=== PATIENT | male | born 1935 | race Caucasian/White ===

== ENCOUNTER 2022-05-18 10:27 | Inpatient (IN) ==
--- NOTE | 2022-05-18 10:57 | Emergency Department Note ---
Impression & Plan SOB (shortness of breath), CHF (congestive heart failure), Elevated troponin, Pedal edema ED Provider Note NAME: AUTUMN CHAUHAN AGE: 86 SEX: M : 1935 ARRIVES VIA: Walk-In INFORMANT: [Patient][family] ED PROVIDER(S): [Paco Gomez MD] CHIEF COMPLAINT: Short of breath HISTORY OF PRESENT ILLNESS: The patient is an 86-year-old male with a history of previous PE, he is on anticoagulation therapy. Lately, especially in the last 2 days, the patient has been complaining of some increasing shortness of breath. He complained of this with walking and then also with the stairs. He has not had any increased cough or congestion. No real chest pain. No fever. No urinary complaints. The patient does have some edema of his lower extremities which family believes may be above his baseline. PMHx/PSHx: See Below SOCIAL HISTORY: See Below. PHYSICAL EXAM: GENERAL: Patient is in no acute distress. HEENT: No acute trauma, normocephalic atraumatic, mucous membranes moist, no nasal congestion. NECK: No stridor, no adenopathy, no meningismus, trachea is midline. LUNGS: No respiratory distress, no wheezing, a few scattered crackles heard at the left lower lung. No cough. HEART: Without murmurs gallops or rubs, regular rate and rhythm. ABDOMEN: Soft, nontender, bowel sounds positive, no peritonitis. EXTREMITIES: No cyanosis. Moderate bilateral pedal edema, no erythema or rash. NEUROLOGIC: Awake and alert, no acute motor or sensory deficits, no focal weakness. SKIN: No rash, no jaundice, no diaphoresis. DIFFERENTIAL DIAGNOSIS: Reactive airway disease, RSV, influenza, COVID-19, pneumonia, pneumothorax, COPD, CHF, pleural effusion, infection, cardiac ischemia, anemia, pulmonary embolism, bronchitis, as well as other pathologies. EMERGENCY DEPARTMENT COURSE/PROCEDURES: Prior/Outside records reviewed: Previous discharge summary reviewed. ECG per my interpretation: Indication was shortness of breath. The ECG shows a sinus rhythm with a first-degree AV block. The rate is 81. There is a right bundle branch block. There is a potential old inferior infarct. No ST elevation, no PVCs. The QTc was 499. Compared to an ECG from 05 Oct 2017, potential old inferior infarct is not noted. Continuous Cardiac Monitoring per my interpretation: An order was placed for continuous cardiac monitoring. The monitor shows a rate of 82 with normal sinus rhythm. MEDICAL DECISION MAKING: There is no leukocytosis or concerning anemia. There is a normal platelet count. No worrisome coagulopathy. No renal failure or significant electrolyte abnormality requiring emergent correction. No concerning liver enzyme elevation. BNP was elevated consistent with fluid overload. Chest x-ray showed a left small left pleural effusion. Some potential mild CHF was seen, no pneumothorax. ECG showed a sinus rhythm with a first-degree AV block and a right bundle branch block. No ST elevation. Cardiac enzyme testing x1 was slightly elevated. This troponin elevation could be secondary to cardiac injury or potentially mismatch. Chest CT did not show PE, CHF was noted. COVID, influenza and RSV test returned negative. Patient presents with exertional dyspnea. He has some crackles on lung exam as well as some pedal edema. The patient was given IV Lasix, 40 mg. He is already diuresing. Given the CHF, given his dyspnea, given the troponin elevation, I do think a hospital stay is warranted. I spoke with the patient and his family, I talked with case management, the on- call hospitalist was consulted. DISPOSITION: Patient's findings warrant a hospital stay. Past Med/Surg History Medical History (HFpEF) heart failure with preserved ejection fraction Edema History of pulmonary embolism HTN (hypertension) Social History Smoking Status: Never smoker Feels Safe at Home: Yes Allergies Allergies Allergy/AdvReac Type Severity Reaction Status Date / Time No Known Allergies Allergy Unverified 10/05/17 12:44 Home Meds Previous Rx's Medication Instructions Recorded APIXABAN (ELIQUIS) 10 mg PO UD 6 days #24 tabs 10/07/17 Aspirin (Aspirin EC Low Dose) 81 mg PO QAM 30 days #30 tabs 10/07/17 METOPROLOL TARTRATE (LOPRESSOR) 12.5 mg PO BID 30 days #30 tabs 10/07/17 Results & Data (ED) Vital Signs Vital Signs - 24 hr 05/18/22 10:34 05/18/22 10:40 05/18/22 11:21 Temperature 36.5 C Temperature Source Temporal Artery Scan Pulse Rate 82 81 Pulse Rate from SpO2 Sensor Pulse Rhythm Regular Pulse Strength Normal Respiratory Rate 20 20 Respiratory Effort / Characteristics Non-Labored Spontaneous Spontaneous SOB on Exertion Respiratory Depth Normal Normal Respiratory Pattern Regular Tachypnea Blood Pressure 145/87 H 138/93 Blood Pressure Mean 106 108 Blood Pressure Position Sitting Pulse Oximetry 97 95 Oxygen Delivery Method Room Air Room Air Room Air Sepsis Recent Fever Within 48 Hours No Sepsis New/Unexplained Change in Mental Status N/A Sepsis Action Taken by Nursing No Action Required 05/18/22 12:00 05/18/22 13:15 Temperature Temperature Source Pulse Rate 81 83 Pulse Rate from SpO2 Sensor 81 Pulse Rhythm Pulse Strength Respiratory Rate 22 18 Respiratory Effort / Characteristics Respiratory Depth Respiratory Pattern Blood Pressure 124/82 140/89 Blood Pressure Mean 96 106 Blood Pressure Position Pulse Oximetry 95 95 Oxygen Delivery Method Sepsis Recent Fever Within 48 Hours Sepsis New/Unexplained Change in Mental Status Sepsis Action Taken by Assisted Medications Current Medication List: was personally reviewed by me Laboratory Data Attestation: I reviewed the patient's lab results. 05/18/22 11:10 05/18/22 11:10 Lab Results 05/18/22 05/18/22 05/18/22 Range/Units 11:10 11:10 11:10 WBC 6.97 (4.8-10.8) K/ul RBC 4.20 L (4.63-6.08) M/uL Hgb 13.9 L (14.0-18.0) g/dl Hct 39.1 L (40.1-51.0) % MCV 93.1 (80.0-100.0) fL MCH 33.1 (25.0-34.0) pg MCHC 35.5 (32.0-36.0) g/dL RDW Std Deviation 43.0 (36.4-46.3) fL RDW Coeff of Nellie 12.6 (11.5-14.5) % Plt Count 274 (130-400) K/uL MPV 9.6 (9.4-12.4) fL Immature Gran % (Auto) 0.3 % Neut % (Auto) 65.5 % Lymph % (Auto) 21.5 % Quay % (Auto) 9.6 % Eos % (Auto) 2.4 % Baso % (Auto) 0.7 % Neut # (Auto) 4.56 (1.4-6.5) K/uL Lymph # (Auto) 1.50 (1.2-3.4) K/uL Quay # (Auto) 0.67 (0.24-0.82) K/uL Eos # (Auto) 0.17 (0-0.50) K/uL Baso # (Auto) 0.05 (0-0.2) K/uL Immature Gran # (Auto) 0.02 (0.00-0.02) K/uL PT 11.7 (9.0-12.0) Seconds INR 1.1 (0.9-1.1) APTT 31.4 H (21.0-31.0) Seconds PTT Ratio 1.1 Sodium 135 L (136-145) mmol/L Potassium 4.7 (3.5-5.1) mmol/L Chloride 103 (98-107) mmol/L Carbon Dioxide 26 (21-32) mmol/L Anion Gap 6 (3-11) BUN 25 H (6-23) mg/dl Creatinine 1.40 (0.6-1.4) mg/dl Est Cr Clr Drug Dosing 40.0 ml/min Est GFR ( Amer) 51.6 ml/min Est GFR (Non-Af Amer) 44.5 ml/min BUN/Creatinine Ratio 17.9 (10-20) Glucose 100 H (70-99(Fasting)) mg/dl Calcium 9.4 (8.5-10.1) mg/dl Magnesium 2.0 (1.7-2.4) mg/dl Total Bilirubin 0.7 (0.2-1.0) mg/dl AST 24 (13-39) U/L ALT 19 (7-52) U/L Alkaline Phosphatase 67 (34-104) U/L Troponin I High Sens 92.2 H* (0-20) pg/ml B-Natriuretic Peptide (0-100) pg/ml Total Protein 6.8 (6.0-8.3) gm/dl Albumin 3.7 (3.4-5.0) gm/dl Globulin 3.1 (2.5-4.0) gm/dl Albumin/Globulin Ratio 1.2 (0.9-2) SARS-CoV-2 (PCR) (Negative) Influenza Type A (PCR) (Neg) Influenza Type B (PCR) (Neg) RSV (RT-PCR) (Neg) 05/18/22 05/18/22 Range/Units 11:10 11:15 WBC (4.8-10.8) K/ul RBC (4.63-6.08) M/uL Hgb (14.0-18.0) g/dl Hct (40.1-51.0) % MCV (80.0-100.0) fL MCH (25.0-34.0) pg MCHC (32.0-36.0) g/dL RDW Std Deviation (36.4-46.3) fL RDW Coeff of Nellie (11.5-14.5) % Plt Count (130-400) K/uL MPV (9.4-12.4) fL Immature Gran % (Auto) % Neut % (Auto) % Lymph % (Auto) % Quay % (Auto) % Eos % (Auto) % Baso % (Auto) % Neut # (Auto) (1.4-6.5) K/uL Lymph # (Auto) (1.2-3.4) K/uL Quay # (Auto) (0.24-0.82) K/uL Eos # (Auto) (0-0.50) K/uL Baso # (Auto) (0-0.2) K/uL Immature Gran # (Auto) (0.00-0.02) K/uL PT (9.0-12.0) Seconds INR (0.9-1.1) APTT (21.0-31.0) Seconds PTT Ratio Sodium (136-145) mmol/L Potassium (3.5-5.1) mmol/L Chloride (98-107) mmol/L Carbon Dioxide (21-32) mmol/L Anion Gap (3-11) BUN (6-23) mg/dl Creatinine (0.6-1.4) mg/dl Est Cr Clr Drug Dosing ml/min Est GFR ( Amer) ml/min Est GFR (Non-Af Amer) ml/min BUN/Creatinine Ratio (10-20) Glucose (70-99(Fasting)) mg/dl Calcium (8.5-10.1) mg/dl Magnesium (1.7-2.4) mg/dl Total Bilirubin (0.2-1.0) mg/dl AST (13-39) U/L ALT (7-52) U/L Alkaline Phosphatase (34-104) U/L Troponin I High Sens (0-20) pg/ml B-Natriuretic Peptide 280 H (0-100) pg/ml Total Protein (6.0-8.3) gm/dl Albumin (3.4-5.0) gm/dl Globulin (2.5-4.0) gm/dl Albumin/Globulin Ratio (0.9-2) SARS-CoV-2 (PCR) NEGATIVE (Negative) Influenza Type A (PCR) Negative (Neg) Influenza Type B (PCR) Negative (Neg) RSV (RT-PCR) Negative (Neg) Administered Medications Discontinued Medications Furosemide (Furosemide 40 Mg/4 Ml Vial) 40 mg IV ONE ONE Stop: 05/18/22 12:01 Last Admin: 05/18/22 12:30 Dose: 40 mg Documented By: MT Ioversol (Optiray 320 500ml) 110 ml IV ONCE ONE Stop: 05/18/22 12:18 Last Admin: 05/18/22 12:18 Dose: 110 ml Documented By: EDK Imaging Data Radiologist's Impression: Chest X-Ray 05/18/22 10:40 XR chest 1V portable HISTORY: Dyspnea COMPARISON: Chest 10/05/2017. FINDINGS: No pneumothorax. The heart is enlarged. There is a small left pleural effusion. There is mild pulmonary vascular congestion without overt edema. Degenerative changes noted within the left shoulder. IMPRESSION: 1. Cardiomegaly with mild pulmonary vascular congestion. 2. Small left pleural effusion. ACT 112: Negative or not required by law. Electronically signed by: Manuel Lizama M.D. 05/18/2022 10:58 AM Chest CTA 05/18/22 10:54 CHEST CTA for PULMONARY ARTERIES CT DOSE: 505.45 mGycm HISTORY: Dyspnea. TECHNIQUE: Multiaxial CT images of the chest were performed following the intravenous administration of contrast to evaluate the pulmonary arteries. Maxim al intensity projection images were also obtained. A dose lowering technique was utilized adhering to the principles of ALARA. COMPARISON STUDY: Chest CTA 10/06/2017. FINDINGS: Limited views the upper abdomen demonstrate retrograde opacification within the hepatic veins and a normal spleen. Small right and moderate left pleural effusions are noted. The heart is enlarged. No significant pericardial effusion. The thyroid gland enhances normally. Mild body wall edema. Normal esophagus. No mediastinal or hilar lymphadenopathy. Normal caliber thoracic aorta. Inadequate contrast within the aorta to assess for a dissection. Nondiagnostic evaluation of the left lower lobe subsegmental pulmonary arteries due to the motion artifact. Otherwise, no filling defects within the remaining pulmonary arteries to suggest a pulmonary embolus. There are healing left posterior 10th through 12th rib fractures. There are healing left 10th and 11th transverse process fractures. Advanced degenerative changes within the shoulders are noted. No pneumothorax. The central airways are patent. Mild interlobular septal thickening with a few small patchy groundglass airspace opacities within the lungs. This likely represents pulmonary edema. Lower lobe bibasilar consolidation favors atelectasis from the pleural effusions. There are few small groundglass nodules within the upper lobes which are new from the prior study and likely represent a component of the congestive change. Dominant groundglass nodular density within the right upper lobe on image 185 measures 1 cm. IMPRESSION: 1. No evidence for a pulmonary embolus with limitations as described above. 2. Cardiomegaly with mild pulmonary edema and bilateral pleural effusions. This has progressed in the interval. 3. A few patchy and nodular groundglass densities within the lungs most pronounced within the right upper lobe. This favors a component of the congestive change. A superimposed low-grade pneumonia could also have a similar appearance. A 3-[address] follow-up recommended to ensure stability of the nodular airspace opacities. 4. Healing left posterior 10th through 12th rib fractures and healing left T10- 11 transverse process fractures. No pneumothorax. ACT 112: Positive. There are findings on this exam that require communication between the performing entity and the patient following Patient Test Result Information Act ([place] Act 112) guidelines. Electronically signed by: Manuel Lizama M.D. 05/18/2022 12:37 PM Discharge Plan Visit Data Chief Complaint: Shortness of Breath/Dyspnea Stated Complaint: SOB WITH EXCERTION ED Provider: Paco Gomez Discharge Problem: SOB (shortness of breath), CHF (congestive heart failure), Elevated troponin, Pedal edema Patient Disposition: Admitted As Inpatient Condition: Fair Forms Stand Alone Forms: [employer] Plan Prescriptions Prescriptions: No Action Aspirin (Aspirin EC Low Dose) 81 MG ENTERIC COATED TAB 81 mg PO QAM 30 Days Qty: 30 0RF METOPROLOL TARTRATE (LOPRESSOR) 25 MG tablet 12.5 mg PO BID 30 Days Qty: 30 0RF APIXABAN (ELIQUIS) 5 MG tablet 10 mg PO UD 6 Days Qty: 24 0RF Rx Instructions: Take 10 mg twice daily x 6 days Referrals Referrals: Dale Palm [Outside Practitioners] -
--- NOTE | 2022-05-18 10:59 | XRay Report ---
XR chest 1V portable HISTORY: Dyspnea COMPARISON: Chest 10/05/2017. FINDINGS: No pneumothorax. The heart is enlarged. There is a small left pleural effusion. There is mi ld pulmonary vascular congestion without overt edema. Degenerative changes noted within the left shou lder. IMPRESSION: 1. Cardiomegaly with mild pulmonary vascular congestion. 2. Small left pleural effusion. ACT 112: Negative or not required by law. Electronically signed by: Manuel Lizama M.D. 05/18/2022 10:58 AM
[2022-05-18 11:30] LABS: Basophils # (auto) 0.05 K/uL (0-0.2); Basophils % (auto) 0.7 %; Eosinophils # (auto) 0.17 K/uL (0-0.50); Eosinophils % (auto) 2.4 %; Hematocrit (blood only) 39.1 % (40.1-51.0); Hemoglobin 13.9 g/dl (14.0-18.0); Immature Granulocytes # (auto) 0.02 K/uL (0.00-0.02); Immature Granulocytes % (auto) 0.3 %; Lymphocytes % (auto) 21.5 %; Mean Corpuscular Hemoglobin 33.1 pg (25.0-34.0); Mean Corpuscular Hgb Conc 35.5 g/dL (32.0-36.0); Mean Corpuscular Volume 93.1 fL (80.0-100.0); Mean Platelet Volume 9.6 fL (9.4-12.4); Monocytes # (auto) 0.67 K/uL (0.24-0.82); Monocytes % (auto) 9.6 %; Neutrophils # (auto) 4.56 K/uL (1.4-6.5); Neutrophils % (auto) 65.5 %; Platelet Count 274 K/uL (130-400); RDW Coefficient of Variation 12.6 % (11.5-14.5); White Blood Count 6.97 K/ul (4.8-10.8)
[2022-05-18 11:42] LABS: INR 1.1 (0.9-1.1); Partial Thromboplastin Ratio 1.1; Partial Thromboplastin Time 31.4 Seconds (21.0-31.0); Prothrombin Time 11.7 Seconds (9.0-12.0)
[2022-05-18 11:51] LABS: Albumin Globulin Ratio 1.2 (0.9-2); Albumin Level 3.7 gm/dl (3.4-5.0); BUN Creatinine Ratio 17.9 (10-20); Bilirubin,Total 0.7 mg/dl (0.2-1.0); Calcium 9.4 mg/dl (8.5-10.1); Est GFR (African American) 51.6 ml/min; Est GFR (Non-African American) 44.5 ml/min; Globulin 3.1 gm/dl (2.5-4.0); Potassium 4.7 mmol/L (3.5-5.1); Total Protein 6.8 gm/dl (6.0-8.3)
[2022-05-18 12:00] LABS: Troponin I High Sensitivity 92.2 pg/ml (0-20)
[2022-05-18] MEDS ORDERED: FUROSEMIDE 40 MG/4 ML VIAL IV ONE (12:00)
[2022-05-18 12:06] LABS: Influenza A virus by PCR Negative (Neg); Influenza B virus by PCR Negative (Neg); RSV by PCR Negative (Neg); SARS CoV2 RNA(COVID-19) Ceph NEGATIVE (Negative)
[2022-05-18] MEDS ORDERED: OPTIRAY 320 500ml IV ONE (12:17)
--- NOTE | 2022-05-18 12:39 | CT Scan Report ---
CHEST CTA for PULMONARY ARTERIES CT DOSE: 505.45 mGycm HISTORY: Dyspnea. TECHNIQUE: Multiaxial CT images of the chest were performed following the intravenous administration of contrast to evaluate the pulmonary arteries. Maximal intensity projection images were also obtaine d. A dose lowering technique was utilized adhering to the principles of ALARA. COMPARISON STUDY: Chest CTA 10/06/2017. FINDINGS: Limited views the upper abdomen demonstrate retrograde opacification within the hepatic vei ns and a normal spleen. Small right and moderate left pleural effusions are noted. The heart is enlar ged. No significant pericardial effusion. The thyroid gland enhances normally. Mild body wall edema. Normal esophagus. No mediastinal or hilar lymphadenopathy. Normal caliber thoracic aorta. Inadequate contrast within the aorta to assess for a dissection. Nondiagnostic evaluation of the left lower lobe subsegmental pulmonary arteries due to the motion artifact. Otherwise, no filling defects within the remaining pulmonary arteries to suggest a pulmonary embolus. There are healing left posterior 10th t hrough 12th rib fractures. There are healing left 10th and 11th transverse process fractures. Advance d degenerative changes within the shoulders are noted. No pneumothorax. The central airways are paten t. Mild interlobular septal thickening with a few small patchy groundglass airspace opacities within the lungs. This likely represents pulmonary edema. Lower lobe bibasilar consolidation favors atelecta sis from the pleural effusions. There are few small groundglass nodules within the upper lobes which are new from the prior study and likely represent a component of the congestive change. Dominant grou ndglass nodular density within the right upper lobe on image 185 measures 1 cm. IMPRESSION: 1. No evidence for a pulmonary embolus with limitations as described above. 2. Cardiomegaly with mild pulmonary edema and bilateral pleural effusions. This has progressed in the interval. 3. A few patchy and nodular groundglass densities within the lungs most pronounced within the right u pper lobe. This favors a component of the congestive change. A superimposed low-grade pneumonia could also have a similar appearance. A 3-[address] follow-up recommended to ensure stability of th e nodular airspace opacities. 4. Healing left posterior 10th through 12th rib fractures and healing left T10-11 transverse process fractures. No pneumothorax. ACT 112: Positive. There are findings on this exam that require communication between the performing entity and the patient following Patient Test Result Information Act ([place] Act 112) guidelines. Electronically signed by: Manuel Lizama M.D. 05/18/2022 12:37 PM
--- NOTE | 2022-05-18 13:34 | History & Physical Report ---
Date of Service May 18, 2022 Assessment & Plan (1) (HFpEF) heart failure with preserved ejection fraction: (2) Edema: (3) HTN (hypertension): Plan: -bilateral LE edema worsening over past few days -Crackles at bases -CXR: left pleural effusion -Chest CTA: Negative for PE but does show cardiomegaly with mild pulmonary edema and bilateral pleural effusions. A few patchy and nodular groundglass densities within the lungs most pronounced within the right upper lobe were noted. This favors a component of the congestive change. A superimposed low-grade pneumonia could also have a similar appearance. A 3-[address] follow-up recommended to ensure stability of the nodular airspace opacities. -takes Coreg and Lisinopril; continue Lisinopril despite creatinine for now d/t new onset CHF; await further reccs -BNP 280 -Troponin 92.2; trend. Do not suspect ACS based on presentation -Lasix 40 mg IV once in ED; already showing diuresis -ECHO from 2019 EF 70% no valve dysfunction; repeat ECHO -Cards Consult placed as new onset CHF -Continue Lasix 20 mg IV BID; reevaluate -EKG (4) ADRIANA (acute kidney injury): Plan: -baseline creatinine 1.6-1.7 -Current Creatinine 1.4 -Obtain UA -Continue Lisinopril for now despite creatinine 1.3 d/t new onset CHF; follow and hold if necessary pending cards consult' (5) History of pulmonary embolism: Plan: -s/p orthopedic sx in 2018 -On Eloquis 2.5 mg PO BID; continue Plan Disposition: PCP: Dr. Palm Code Status: Full code VTE Prophylaxis: On Eloquis A total of 80 minutes was spent with greater than 50% of that time personally reviewing all current laboratory work and diagnostic imaging studies obtained in the ED. Additionally, I was able to review the patients past medication reconciliation and history with direct visualization in the patients chart. Included in the time above, a portion of that time was spent assessing the patient while discussing and collaborating with specialists, if necessary, and making medical decisions regarding orders to be placed. All of the aforementioned completed while collaborating with Dr. Huang for a full treatment plan. Please see Dr. Huang's addendum for further details. History of Present Illness Chief Complaint: shortness of breath Primary Care Provider: Stevie Lan MD Mr. Royal Carpenter is an 86-year-old male that presented to the [facility] with increased shortness of breath while walking outside and going up stairs that has been going on for the past 24 to 48 hours. The patient denies any chest pain or cough/congestion with his symptoms. CXR revealed Cardiomegaly with mild pulmonary vascular congestion and small left pleural effusion. Chest CTA was negative for PE however revealed cardiomegaly with mild pulmonary edema and bilateral pleural effusions. Troponin elevated 92.2 but suspect mismatch of troponin as I do not anticipate this to be an ACS presentation rather ischemic demand related to a new onset of congestive heart failure. BNP mildly elevated at 280. Upon review of chart patient last echo was 2019 EF 70% and noted mild mitral regurgitation. Additional past medical history includes history of pulmonary embolism status post orthopedic hip surgery in 2018 for which he is on Eliquis, hypertension, HLD, and CKD3. Patient is relatively well at baseline with some cognitive impairment however is quite active and walks daily with a walking stick and is avid in his garden and enjoys mowing the lawn. While patient is a poor historian due to mild cognitive memory impairment, patient is able to participate and communicate in a meaningful way, but is slow to respond to questions. Patient denies tobacco or alcohol use. Patient family providing most of the history. Patient awake alert oriented x2. Patient does not have a history of stroke or TIA. Patient denies headache, visual changes, dizziness, LOC, recent falls or trauma, chest pain, palpitations, shortness of breath, abdominal pain, appetite changes, nausea, vomiting, diarrhea, or skin changes. Patient's indicates that they eat really well but do have poor water intake. They have noticed his bilateral lower extremities becoming more swollen over the past few days but at baseline they do not notice any swelling. When I was in the room the patient ambulated to the bathroom and when he came back appeared to be in a rate controlled atrial flutter; initially patient was in first-degree AVB with RBBB. Will obtain EKG. Patient will be admitted for further evaluation and management. Please see A/P for further details. Allergies Allergy/AdvReac Type Severity Reaction Status Date / Time No Known Allergies Allergy Unverified 05/18/22 14:54 Home Medications Medication Instructions Recorded Confirmed Type apixaban 2.5 mg tablet (Eliquis) 2.5 mg PO AMHS 05/18/22 05/18/22 History carvedilol 3.125 mg tablet 3.125 mg PO AMPM 05/18/22 05/18/22 History lisinopril 5 mg tablet 5 mg PO QAM 05/18/22 05/18/22 History multivitamin 1 tab PO QAM 05/18/22 05/18/22 History saw palmetto 450 mg capsule 450 mg PO QAM 05/18/22 05/18/22 History Past Med/Surg History Medical History (HFpEF) heart failure with preserved ejection fraction Edema History of pulmonary embolism HTN (hypertension) Social History Smoking Status: Never smoker Feels Safe at Home: Yes Review of Systems Review of Systems: Neuro: (-) Falls, trauma, slurred speech HEENT: (-) CERVANTES, dizziness, dysphagia, visual or auditory changes (-) orthopnea CV: (-) CP, palpitations, (+) +1 Bilateral LE edema Resp: (-) SOB; resolved GI: (-) appetite changes, N/V/D, bowel changes : (-) urinary changes Skin: (-) rashes Psych: (-) anxiety, depression Physical Exam Physical Exam: Neuro: AAOx2, PERRLA, no aphagia, memory changes, CNII-XII grossly intact. Wears hearing aids HEENT: head normocephalic, moist mucus membranes CV: S1/S2, (-) M/G/R, (-) edema, cap refill < 3 seconds Resp: Lungs CTA in all vela. On RA GI: Abdomen S/NT/ND, Ax4 bowel sounds, (-) CVA tenderness Musculoskeletal: 5/5 B/L UE strength, 5/5 B/L LE strength. No gait disturbance; witnessed walking to bathroom Skin: (-) rashes , (-) erythema. Psych: euthymic mood, confused Results & Data Results & Data ([facility]) Vital Signs (Past 12 Hours) Vital Signs Temp Pulse Resp BP Pulse Ox O2 Del Method 05/18/22 13:15 83 18 140/89 95 05/18/22 12:00 81 22 124/82 95 05/18/22 11:21 81 20 138/93 95 Room Air 05/18/22 10:40 Room Air 05/18/22 10:34 36.5 C 82 20 145/87 H 97 Room Air Laboratory Results Short CBC 05/18/22 Range/Units 11:10 WBC 6.97 (4.8-10.8) K/ul Hgb 13.9 L (14.0-18.0) g/dl Hct 39.1 L (40.1-51.0) % Plt Count 274 (130-400) K/uL BMP 05/18/22 11:10 Sodium 135 L Potassium 4.7 Chloride 103 Carbon Dioxide 26 BUN 25 H Creatinine 1.40 Glucose 100 H Calcium 9.4 Liver Function 05/18/22 Range/Units 11:10 Total Bilirubin 0.7 (0.2-1.0) mg/dl AST 24 (13-39) U/L ALT 19 (7-52) U/L Alkaline Phosphatase 67 (34-104) U/L Albumin 3.7 (3.4-5.0) gm/dl Diagnostic Findings Chest X-Ray 05/18/22 10:40 XR chest 1V portable HISTORY: Dyspnea COMPARISON: Chest 10/05/2017. FINDINGS: No pneumothorax. The heart is enlarged. There is a small left pleural effusion. There is mild pulmonary vascular congestion without overt edema. Degenerative changes noted within the left shoulder. IMPRESSION: 1. Cardiomegaly with mild pulmonary vascular congestion. 2. Small left pleural effusion. ACT 112: Negative or not required by law. Electronically signed by: Manuel Lizama M.D. 05/18/2022 10:58 AM Chest CTA 05/18/22 10:54 CHEST CTA for PULMONARY ARTERIES CT DOSE: 505.45 mGycm HISTORY: Dyspnea. TECHNIQUE: Multiaxial CT images of the chest were performed following the intravenous administration of contrast to evaluate the pulmonary arteries. Maximal intensity projection images were also obtained. A dose lowering technique was utilized adhering to the principles of ALARA. COMPARISON STUDY: Chest CTA 10/06/2017. FINDINGS: Limited views the upper abdomen demonstrate retrograde opacification within the hepatic veins and a normal spleen. Small right and moderate left pleural effusions are noted. The heart is enlarged. No significant pericardial effusion. The thyroid gland enhances normally. Mild body wall edema. Normal esophagus. No mediastinal or hilar lymphadenopathy. Normal caliber thoracic aorta. Inadequate contrast within the aorta to assess for a dissection. Nondiagnostic evaluation of the left lower lobe subsegmental pulmonary arteries due to the motion artifact. Otherwise, no filling defects within the remaining pulmonary arteries to suggest a pulmonary embolus. There are healing left posterior 10th through 12th rib fractures. There are healing left 10th and 11th transverse process fractures. Advanced degenerative changes within the shoulders are noted. No pneumothorax. The central airways are patent. Mild interlobular septal thickening with a few small patchy groundglass airspace opacities within the lungs. This likely represents pulmonary edema. Lower lobe bibasilar consoli dation favors atelectasis from the pleural effusions. There are few small groundglass nodules within the upper lobes which are new from the prior study and likely represent a component of the congestive change. Dominant groundglass nodular density within the right upper lobe on image 185 measures 1 cm. IMPRESSION: 1. No evidence for a pulmonary embolus with limitations as described above. 2. Cardiomegaly with mild pulmonary edema and bilateral pleural effusions. This has progressed in the interval. 3. A few patchy and nodular groundglass densities within the lungs most pronounced within the right upper lobe. This favors a component of the congestive change. A superimposed low-grade pneumonia could also have a similar appearance. A 3-[address] follow-up recommended to ensure stability of the nodular airspace opacities. 4. Healing left posterior 10th through 12th rib fractures and healing left T10- 11 transverse process fractures. No pneumothorax. ACT 112: Positive. There are findings on this exam that require communication between the performing entity and the patient following Patient Test Result Information Act ([place] Act 112) guidelines. Electronically signed by: Manuel Lizama M.D. 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 Patient denies any chest pain. Patient denies any myalgia or flulike symptoms recently. Troponin at presentation elevated, EKG without acute ST changes, trend troponin, get echo, Lasix 20 Mg IV twice daily, status post 40 Mg IV Lasix in the ED with good diuresis response and improvement in his lung crackles and BLE swelling per his daughter who was present at bedside and making note of examination finding from his provider that examined him today. Cardiology consult, telemetry monitoring. Concern of a flutter per patient's daughter who is a surgical garment assembler in our hospital. f/u BMP, replace lytes as appropriate. On examination: GENERAL: Alert. NAD, on RA. HEENT: No pallor, no icterus. Pupils equal, round and reactive to light. Oral mucosa moist. NECK: No JVD, no neck masses. HEART: S1 and S2 heard. Regular rate and rhythm. No murmur, no gallop. RESPIRATORY SYSTEM: Normal AP diameter. No accessory muscle use. No wheezing, no crackles. ABDOMEN: Soft, bowel sounds present, nontender, no distention. CENTRAL NERVOUS SYSTEM: No facial droop. Speech is clear. Obeys simple commands. Moves extremities. EXTREMITIES: 1+ BLE edema, no erythema seen. I have seen and examined the patient and have discussed the case with the provider above. I agree with the assessment and plan as stated.
[2022-05-18] MEDS ORDERED: POLYETHYLENE (MIRALAX) 17 GM PACK PO PRN (13:38)
[2022-05-18] MEDS ORDERED: ALUMINUM/MAGNESIUM SUSP 30 ML UDC PO PRN (13:38)
[2022-05-18] MEDS ORDERED: ACETAMINOPHEN 325 MG TAB PO PRN (13:38)
[2022-05-18] MEDS ORDERED: ONDANSETRON INJ 2 MG/ML 2 ML VIAL IV PRN (13:38)
[2022-05-18] MEDS ORDERED: MAGNESIUM HYDROXIDE SUSP 30 ML UDC PO PRN (13:38)
[2022-05-18 14:54] LABS: Chol HDL Ratio 3.5 (0-5)
[2022-05-18] MEDS ORDERED: carvediloL 3.125 MG TAB PO STA (15:15)
[2022-05-18] MEDS: APIXABAN 2.5 MG TAB PO SCH (21:09)
[2022-05-18] MEDS: carvediloL 3.125 MG TAB PO SCH (21:09)
[2022-05-18 21:37] LABS: Appearance Urine Clear (Clear); Bacteria Urine Automated Negative (Negative); Bilirubin Urine Negative (Negative); Blood Urine 1+ (Negative); Cast Urine Automated 0 /lpf (0-5); Color Urine Yellow; Epithelial Cell Urine Auto 0-5 /lpf (0-5); Glucose Urine UA Negative (Negative); Ketones Urine Negative (Negative); Leukocyte Esterase Urine Negative (Negative); Nitrite Urine Negative (Negative); Protein Urine Negative (Negative); RBC Urine Automated 0-4 /hpf (0-4); Specific Gravity Urine 1.014 (1.000-1.030); Urobilinogen Urine Negative (Negative); WBC Urine Automated 0 /hpf (0-5); pH Urine 5.5 (4.5-7.5)
--- NOTE | 2022-05-18 22:53 | Electrocardiogram Report ---
Test Reason : Blood Pressure : / mmHG Vent. Rate : 081 BPM Atrial Rate : 081 BPM P-R Int : 216 ms QRS Dur : 158 ms QT Int : 430 ms P-R-T Axes : 000 177 -21 degrees QTc Int : 499 ms Atrial flutter Right bundle branch block Possible Lateral infarct , age undetermined Inferior infarct , age undetermined Abnormal ECG When compared with ECG of 05-OCT-2017 12:12, Atrial flutter has replaced Sinus rhythm Possible Inferior infarct is now Present Confirmed by Gene Chowdhury ([id number]) on 05/18/2022 10:53:29 PM Referred By: Confirmed By:Gene Chowdhury
[2022-05-18] MEDS ORDERED: MELATONIN 3 MG TAB PO PRN (23:58)
[2022-05-19 06:10] LABS: Hematocrit (blood only) 43.4 % (40.1-51.0); Mean Corpuscular Hemoglobin 32.6 pg (25.0-34.0); Mean Corpuscular Hgb Conc 34.6 g/dL (32.0-36.0); Mean Corpuscular Volume 94.3 fL (80.0-100.0); Mean Platelet Volume 9.7 fL (9.4-12.4); Platelet Count 293 K/uL (130-400); RDW Coefficient of Variation 12.5 % (11.5-14.5); RDW Standard Deviation 43.2 fL (36.4-46.3); White Blood Count 8.78 K/ul (4.8-10.8)
[2022-05-19 06:40] LABS: BUN Creatinine Ratio 17.4 (10-20); Calcium 9.7 mg/dl (8.5-10.1); Creatinine Clr Calc Pharmacy 29.7 ml/min; Est GFR (African American) 38.6 ml/min; Est GFR (Non-African American) 33.3 ml/min; Magnesium 1.9 mg/dl (1.7-2.4); Potassium 4.3 mmol/L (3.5-5.1)
[2022-05-19] MEDS ORDERED: FUROSEMIDE INJ 20 MG/2 ML VIAL IV SCH ×2 (08:00→17:00)
[2022-05-19] MEDS: ASPIRIN 81 MG ECTAB PO SCH (09:05)
[2022-05-19] MEDS: APIXABAN 2.5 MG TAB PO SCH ×2 (09:05→19:39)
[2022-05-19] MEDS: carvediloL 3.125 MG TAB PO SCH ×2 (09:05→19:39)
[2022-05-19] MEDS: lisinopril 5 MG TAB PO SCH (09:05)
[2022-05-19] MEDS: TAMSULOSIN HCL 0.4 MG CAP PO SCH (09:05)
--- NOTE | 2022-05-19 09:36 | XRay Report ---
XR chest 1V portable CLINICAL HISTORY: CHF COMPARISON STUDY: Chest radiograph and chest CT May 18, 2022. FINDINGS: There is no pneumothorax. Small to moderate left and trace right pleural effusions are unch anged. Cardiomegaly is again noted. Mild interstitial pulmonary edema is unchanged. Left basilar opac ity persists. IMPRESSION: No change in appearance of the chest. Mild interstitial thickening with bilateral pleural effusions and left basilar opacity. ACT 112: Negative or not required by law. Electronically signed by: Jeffery Mills M.D. 05/19/2022 9:35 AM
[2022-05-19] MEDS ORDERED: FUROSEMIDE 40 MG/4 ML VIAL IV ONE (12:26)
--- NOTE | 2022-05-19 13:15 | Cardiology Consultation ---
Date of Consultation May 19, 2022 Assessment & Plan (1) Acute systolic (congestive) heart failure: (2) SOB (shortness of breath): (3) Pedal edema: (4) HTN (hypertension): (5) Mitral regurgitation: (6) LVH (left ventricular hypertrophy): Plan The results of the echocardiogram were reviewed with the patient and his family They are counseled that his LV systolic function has declined to 40 to 45% with mild to moderate global hypokinesis along with severe concentric LVH and m oderate to severe mitral regurgitation So at this point we will treat him for acute decompensated systolic heart failure Given his age and lack of symptoms and ischemic work-up will be deferred at this time His baseline renal function is mildly reduced so I will increase his Lasix to 60 mg IV twice daily Electrolytes should be followed and replaced as necessary He is already on evidence-based beta-nell as well as YARELIS inhibitor's no other medication changes will be made at this time I do not believe his blood pressure would tolerate the addition of aldosterone antagonism at this point Consideration could be given to an outpatient cardiac MRI to evaluate for infiltrative process given his severe concentric LVH, however, given his advanced age I doubt this will alter his quality of life Continue to monitor on telemetry overnight Strict I's and O's along with daily weights on the same standing scale History of Present Illness Reason for Consultation: acute decompensated heart failure Requesting Physician: [facility] Attending Physician: Ortiz Huang MD History of Present Illness It was my pleasure to see Mr. Inman in cardiac consultation today. He is a very pleasant yet somewhat demented 86-year-old gentleman who follows with Dr. Newman of our cardiology practice on an annual basis. He presented to [facility] on 05/18/2022 with complaints of shortness of breath with exertion. The patient is somewhat confused and the majority history was provided by his daughter who was at the bedside. He states that he and his walk on a daily basis but approximately 3 days prior to presentation he started having shortness of breath on their walks which is new for him. He then developed shortness of breath going up steps as well and on the day of presentation he had significant lower extremity edema. He did not voice any complaints of chest pain, palpitations, lightheadedness or dizziness. Upon arrival he was found to be significantly volume overloaded and started on IV Lasix with good diuresis. Currently states he feels well at rest. Allergies Allergy/AdvReac Type Severity Reaction Status Date / Time No Known Allergies Allergy Unverified 05/18/22 14:54 Home Medications Medication Instructions Recorded Confirmed Type apixaban 2.5 mg tablet (Eliquis) 2.5 mg PO AMHS 05/18/22 05/18/22 History carvedilol 3.125 mg tablet 3.125 mg PO AMPM 05/18/22 05/18/22 History lisinopril 5 mg tablet 5 mg PO QAM 05/18/22 05/18/22 History multivitamin 1 tab PO QAM 05/18/22 05/18/22 History saw palmetto 450 mg capsule 450 mg PO QAM 05/18/22 05/18/22 History Patient History Medical History (HFpEF) heart failure with preserved ejection fraction Edema History of pulmonary embolism HTN (hypertension) Social History Smoking Status: Never smoker Feels Safe at Home: Yes Review of Systems Review of Systems: All systems reviewed & are unremarkable except as noted in HPI & below Physical Exam Physical Exam: General: Awake, alert and oriented x 3. No acute distress. HEENT: Normocephalic, atraumatic. Pupils equal, round and reactive to light and accommodation. Extraocular muscles are intact. Anicteric sclera. Moist mucous membranes. Neck: No JVD. No bruit. Cardiovascular: Regular. Positive S-4. Normal S-1 and S-2. No S-3. 3/6 holosystolic ejection murmur, left sternal border, mid-clavicular line with radiation to the axilla. No rubs. Pulmonary: Clear to auscultation bilaterally. No rales, rhonchi, or wheezing. Abdomen: Bowel sounds x 4, soft. No rebound, guarding or tenderness. No organomegaly. Extremities: No clubbing, cyanosis or edema. +2 pedal pulses bilaterally. Skin: Warm and dry. Results & Data ([facility]) Vital Signs (Past 12 Hours) Vital Signs Temp Pulse Pulse Resp BP Pulse Ox O2 Del Method 05/19/22 07:14 36.5 C 80 20 156/86 H 96 Room Air 05/19/22 07:10 83 05/18/22 23:07 36.4 C L 87 18 126/84 94 Room Air 05/18/22 23:02 90 05/18/22 22:43 Room Air
--- NOTE | 2022-05-19 14:21 | Electrocardiogram Report ---
Test Reason : Blood Pressure : / mmHG Vent. Rate : 083 BPM Atrial Rate : 083 BPM P-R Int : 130 ms QRS Dur : 156 ms QT Int : 444 ms P-R-T Axes : 037 246 056 degrees QTc Int : 521 ms Poor data quality, interpretation may be adversely affected Normal sinus rhythm Right bundle branch block Possible Old Lateral infarct (cited on or before 18-MAY-2022) Possible Old Inferior infarct (cited on or before 18-MAY-2022) Abnormal ECG When compared with ECG of 18-MAY-2022 15:29, No significant change Confirmed by José Connor ([id number]) on 05/19/2022 2:21:28 PM Referred By: REFERRED SELF Confirmed By:José Connor
--- NOTE | 2022-05-19 14:53 | Electrocardiogram Report ---
Test Reason : Blood Pressure : / mmHG Vent. Rate : 082 BPM Atrial Rate : 082 BPM P-R Int : 184 ms QRS Dur : 158 ms QT Int : 436 ms P-R-T Axes : 000 173 -39 degrees QTc Int : 509 ms Unusual P axis, possible ectopic atrial rhythm Right bundle branch block Cannot rule out Old Lateral infarct (cited on or before 18-MAY-2022) Possible Old Inferior infarct (cited on or before 18-MAY-2022) Abnormal ECG When compared with ECG of 18-MAY-2022 10:46, Current rhythm more suggestive of ectopic atrial rhythm than aflutter, no change compared with 10:46 Confirmed by José Connor ([id number]) on 05/19/2022 2:53:16 PM Referred By: REFERRED SELF Confirmed By:José Connor
--- NOTE | 2022-05-19 15:16 | Hospitalist Progress Note ---
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 Patient denied any chest pain. Patient denied any myalgia or flulike symptoms recently. He is being managed with the following: Acute systolic heart failure Demand ischemia Patient presented with shortness of breath for 1 to 2 days associated with BLE edema worsening over the past few days [facility]. Admitting CXR with congestive changes, CTA chest negative for PE but with mild pulmonary edema and bilateral pleural effusion. Admitting BNP 280, troponin elevated, flat trended. Patient with no chest pain. Patient received a dose of IV Lasix in the ED with significant improvement in his breathing/crackles improved on auscultation. Echo with EF of 40 to 45%. Cardiology on board, managing diuresis. Patient will need outpatient follow-up with cardiology upon discharge. Monitor and replete electrolytes as appropriate. CKD stage IIIb: Admitting creatinine of 1.4, baseline creatinine around 1.6, patient at baseline, no acute kidney injury. Monitor. Other chronic medical conditions: HTN, history of PE --- resume home meds as able DVT prophylaxis: On Eliqu Full code Admission and Anticipated Discharge Date Admission Date: May 18, 2022 Subjective Patient seen and examined at bedside as a follow-up of acute systolic heart failure. Patient was lying in bed, on room air, alert, confused but cooperative, denies pain or discomfort or shortness of breath, recent detail not able due to cognition status. Physical Exam Physical Exam: GENERAL: Alert. NAD, on RA. HEENT: No pallor, no icterus. Pupils equal, round and reactive to light. Oral mucosa moist. NECK: No JVD, no neck masses. HEART: S1 and S2 heard. Regular rate and rhythm. No murmur, no gallop. RESPIRATORY SYSTEM: Normal AP diameter. No accessory muscle use. No wheezing, no crackles. ABDOMEN: Soft, bowel sounds present, nontender, no distention. CENTRAL NERVOUS SYSTEM: No facial droop. Speech is clear. Obeys simple commands. Moves extremities. EXTREMITIES: trace BLE edema, no erythema seen. Results & Data Results & Data ([facility]) Vital Signs (Past 12 Hours) Vital Signs Temp Pulse Pulse Resp BP Pulse Ox O2 Del Method 05/19/22 10:48 36.6 C 82 20 123/77 96 Room Air 05/19/22 07:14 36.5 C 80 20 156/86 H 96 Room Air 05/19/22 07:10 83
[2022-05-19] MEDS: FUROSEMIDE 40 MG/4 ML VIAL IV SCH (17:03)
[2022-05-20 07:29] LABS: BUN Creatinine Ratio 19.5 (10-20); Calcium 9.4 mg/dl (8.5-10.1); Creatinine Clr Calc Pharmacy 23.3 ml/min; Est GFR (African American) 29.9 ml/min; Est GFR (Non-African American) 25.8 ml/min; Magnesium 1.8 mg/dl (1.7-2.4); Phosphorus 4.8 mg/dl (2.5-4.9)
[2022-05-20] MEDS: carvediloL 3.125 MG TAB PO SCH ×2 (08:53→20:57)
[2022-05-20] MEDS: lisinopril 5 MG TAB PO SCH (08:53)
[2022-05-20] MEDS: ASPIRIN 81 MG ECTAB PO SCH (08:53)
[2022-05-20] MEDS: APIXABAN 2.5 MG TAB PO SCH ×2 (08:53→20:57)
[2022-05-20] MEDS: TAMSULOSIN HCL 0.4 MG CAP PO SCH (08:53)
[2022-05-20] MEDS: FUROSEMIDE 40 MG/4 ML VIAL IV SCH ×2 (08:57→19:50)
--- NOTE | 2022-05-20 10:30 | Cardiology Progress Note ---
Date of Service May 20, 2022 Assessment & Plan (1) Acute systolic (congestive) heart failure: (2) SOB (shortness of breath): (3) Pedal edema: (4) HTN (hypertension): (5) Mitral regurgitation: (6) LVH (left ventricular hypertrophy): Plan The results of the echocardiogram were reviewed with the patient and his family They are counseled that his LV systolic function has declined to 40 to 45% with mild to moderate global hypokinesis along with severe concentric LVH and moder ate to severe mitral regurgitation So at this point we will treat him for acute decompensated systolic heart failure Given his age and lack of symptoms and ischemic work-up will be deferred at this time Electrolytes should be followed and replaced as necessary He is already on evidence-based beta-nell as well as YARELIS inhibitor's no other medication changes will be made at this time Consideration could be given to an outpatient cardiac MRI to evaluate for infiltrative process given his severe concentric LVH, however, given his advanced age I doubt this will alter his quality of life Continue to monitor on telemetry overnight continue IV lasix hold AM dose on 05/21 and follow volume status clinically Strict I's and O's along with daily weights on the same standing scale (neither have been done) Admission and Anticipated Discharge Date Admission Date: May 18, 2022 Subjective Pt seen and examined. Chart reviewed. Telemetry reviewed. Without complaint. Review of Systems Review of Systems: All systems reviewed & are unremarkable except as noted in HPI & below Physical Exam Physical Exam: General: Awake, alert and oriented x 3. No acute distress. HEENT: Normocephalic, atraumatic. Pupils equal, round and reactive to light and accommodation. Extraocular muscles are intact. Anicteric sclera. Moist mucous membranes. Neck: No JVD. No bruit. Cardiovascular: Regular. Positive S-4. Normal S-1 and S-2. No S-3. 3/6 holosystolic ejection murmur, left sternal border, mid-clavicular line with radiation to the axilla. No rubs. Pulmonary: Clear to auscultation bilaterally. No rales, rhonchi, or wheezing. Abdomen: Bowel sounds x 4, soft. No rebound, guarding or tenderness. No organomegaly. Extremities: No clubbing, cyanosis or edema. +2 pedal pulses bilaterally. Skin: Warm and dry. Results & Data ([facility]) Vital Signs (Past 12 Hours) Vital Signs Temp Pulse Pulse Resp BP Pulse Ox O2 Del Method 05/20/22 07:24 36.5 C 82 18 151/77 H Room Air 05/20/22 00:18 83 05/19/22 22:35 36.7 C 83 20 109/69 93 Room Air
--- NOTE | 2022-05-20 14:04 | Hospitalist Progress Note ---
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 Patient denied any chest pain. Patient denied any myalgia or flulike symptoms recently. 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 Admitting CXR with congestive changes, CTA chest negative for PE but with mild pulmonary edema and bilateral pleural effusion. Admitting BNP 280, troponin elevated, flat trended. Patient with no chest pain. Patient received a dose of IV Lasix in the ED with significant improvement in his breathing/crackles improved on auscultation. Echo with EF of 40 to 45%. Cardiology on board, managing diuresis. Patient will need outpatient follow-up with cardiology upon discharge.Possible outpatient cardiac MRI to eval for infiltrative process. Monitor and replete electrolytes as appropriate. CKD stage IIIb: Admitting creatinine of 1.4, baseline creatinine around 1.6, Today 2.2, continue to follow BMP. Pt being optimized on GDMT. Aflutter: noted over telemetry, rate controlled, pt already on eliquis for other reasons. c/w telemetry. pt w/ no chest pain or palpitations. Other chronic medical conditions: HTN, history of PE --- resume home meds as able DVT prophylaxis: On Eliquis Full code Admission and Anticipated Discharge Date Admission Date: May 18, 2022 Subjective Patient seen and examined at bedside as a follow-up of acute systolic heart failure. Patient was lying in bed, on room air, alert, confused but cooperative, denies pain or discomfort or shortness of breath, ROS in detail not able due to cognition status. Physical Exam Physical Exam: GENERAL: Alert. NAD, on RA. HEENT: No pallor, no icterus. Pupils equal, round and reactive to light. Oral mucosa moist. NECK: No JVD, no neck masses. HEART: S1 and S2 heard. Regular rate and rhythm. No murmur, no gallop. RESPIRATORY SYSTEM: Normal AP diameter. No accessory muscle use. No wheezing, no crackles. ABDOMEN: Soft, bowel sounds present, nontender, no distention. CENTRAL NERVOUS SYSTEM: No facial droop. Speech is clear. Obeys simple commands. Moves extremities. EXTREMITIES: no edema, no erythema seen. Results & Data Results & Data ([facility]) Vital Signs (Past 12 Hours) Vital Signs Temp Pulse Resp BP Pulse Ox O2 Del Method 05/20/22 08:00 Room Air 05/20/22 11:25 36.4 C L 82 18 113/68 93 Room Air 05/20/22 07:24 36.5 C 82 18 151/77 H Room Air
[2022-05-21 08:34] LABS: BUN Creatinine Ratio 22.4 (10-20); Calcium 9.4 mg/dl (8.5-10.1); Creatinine Clr Calc Pharmacy 24.5 ml/min; Est GFR (African American) 31.6 ml/min; Est GFR (Non-African American) 27.3 ml/min; Phosphorus 4.2 mg/dl (2.5-4.9); Potassium 3.8 mmol/L (3.5-5.1)
[2022-05-21] MEDS: TAMSULOSIN HCL 0.4 MG CAP PO SCH (08:37)
[2022-05-21] MEDS: APIXABAN 2.5 MG TAB PO SCH (08:37)
[2022-05-21] MEDS: carvediloL 3.125 MG TAB PO SCH (08:37)
[2022-05-21] MEDS: ASPIRIN 81 MG ECTAB PO SCH (08:38)
[2022-05-21] MEDS: lisinopril 5 MG TAB PO SCH (08:38)
--- NOTE | 2022-05-21 10:35 | Cardiology Progress Note ---
Date of Service May 21, 2022 Assessment & Plan (1) Acute systolic (congestive) heart failure: (2) SOB (shortness of breath): (3) Pedal edema: (4) HTN (hypertension): (5) Mitral regurgitation: (6) LVH (left ventricular hypertrophy): Plan The results of the echocardiogram were reviewed with the patient and his family They are counseled that his LV systolic function has declined to 40 to 45% with mild to moderate global hypokinesis along with severe concentric LVH and moder ate to severe mitral regurgitation now back to baseline clinically s/p diuresis no further IV diuretics will start po lasix 60mg daily tomorrow creatinine did bump so, will ask our nephrology colleagues to evaluate, outpatient evaluation would also be acceptable will hold lisinopril now as well otherwise, ok to d/c to home from cardiac standpoint Admission and Anticipated Discharge Date Admission Date: May 18, 2022 Subjective Pt seen and examined. Chart reviewed. Telemetry reviewed. States that he feels back to baseline. Review of Systems Review of Systems: All systems reviewed & are unremarkable except as noted in HPI & below Physical Exam Physical Exam: General: Awake, alert and oriented x 3. No acute distress. HEENT: Normocephalic, atraumatic. Pupils equal, round and reactive to light and accommodation. Extraocular muscles are intact. Anicteric sclera. Moist mucous membranes. Neck: No JVD. No bruit. Cardiovascular: Regular. Positive S-4. Normal S-1 and S-2. No S-3. 3/6 holosystolic ejection murmur, left sternal border, mid-clavicular line with radiation to the axilla. No rubs. Pulmonary: Clear to auscultation bilaterally. No rales, rhonchi, or wheezing. Abdomen: Bowel sounds x 4, soft. No rebound, guarding or tenderness. No organomegaly. Extremities: No clubbing, cyanosis or edema. +2 pedal pulses bilaterally. Skin: Warm and dry. Results & Data ([facility]) Vital Signs (Past 12 Hours) Vital Signs Temp Pulse Pulse Resp BP Pulse Ox O2 Del Method 05/21/22 07:40 36.3 C L 83 16 142/78 H 97 Room Air 05/21/22 07:25 93 H 05/20/22 22:44 36.5 C 82 20 140/84 91 Room Air
--- NOTE | 2022-05-21 14:01 | Discharge Summary ---
Date of Service May 21, 2022 Admission HPI Per Admitting Provider Mr. Royal Carpenter is an 86-year-old male that presented to the [facility] with increased shortness of breath while walking outside and going up stairs that has been going on for the past 24 to 48 hours. The patient denies any chest pain or cough/congestion with his symptoms. CXR revealed Cardiomegaly with mild pulmonary vascular congestion and small left pleural effusion. Chest CTA was negative for PE however revealed cardiomegaly with mild pulmonary edema and bilateral pleural effusions. Troponin elevated 92.2 but suspect mismatch of troponin as I do not anticipate this to be an ACS presentation rather ischemic demand related to a new onset of congestive heart failure. BNP mildly elevated at 280. Upon review of chart patient last echo was 2019 EF 70% and noted mild mitral regurgitation. Additional past medical history includes history of pulmonary embolism status post orthopedic hip surgery in 2018 for which he is on Eliquis, hypertension, HLD, and CKD3. Patient is relatively well at baseline with some cognitive impairment however is quite active and walks daily with a walking stick and is avid in his garden and enjoys mowing the lawn. While patient is a poor historian due to mild cognitive memory impairment, patient is able to participate and communicate in a meaningful way, but is slow to respond to questions. Patient denies tobacco or alcohol use. Patient family providing most of the history. Patient awake alert oriented x2. Patient does not have a history of stroke or TIA. Patient denies headache, visual changes, dizziness, LOC, recent falls or trauma, chest pain, palpitations, shortness of breath, abdominal pain, appetite changes, nausea, vomiting, diarrhea, or skin changes. Patient's indicates that they eat really well but do have poor water intake. They have noticed his bilateral lower extremities becoming more swollen over the past few days but at baseline they do not notice any swelling. When I was in the room the patient ambulated to the bathroom and when he came back appeared to be in a rate controlled atrial flutter; initially patient was in first-degree AVB with RBBB. Will obtain EKG. Patient will be admitted for further evaluation and management. Please see A/P for further details. Admission Exam Per Admitting Provider Neuro: AAOx2, PERRLA, no aphagia, memory changes, CNII-XII grossly intact. Wears hearing aids HEENT: head normocephalic, moist mucus membranes CV: S1/S2, (-) M/G/R, (-) edema, cap refill < 3 seconds Resp: Lungs CTA in all vela. On RA GI: Abdomen S/NT/ND, Ax4 bowel sounds, (-) CVA tenderness Musculoskeletal: 5/5 B/L UE strength, 5/5 B/L LE strength. No gait disturbance; witnessed walking to bathroom Skin: (-) rashes , (-) erythema. Psych: euthymic mood, confused Principal Diagnosis Acute systolic heart failure Demand ischemia Discharge Exam GENERAL: Alert. NAD, on RA. HEENT: No pallor, no icterus. Pupils equal, round and reactive to light. Oral mucosa moist. NECK: No JVD, no neck masses. HEART: S1 and S2 heard. Regular rate and rhythm. No murmur, no gallop. RESPIRATORY SYSTEM: Normal AP diameter. No accessory muscle use. No wheezing, no crackles. ABDOMEN: Soft, bowel sounds present, nontender, no distention. CENTRAL NERVOUS SYSTEM: No facial droop. Speech is clear. Obeys simple commands. Moves extremities. EXTREMITIES: no edema, no erythema seen. 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 Patient denied any chest pain. Patient denied any myalgia or flulike symptoms recently. 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 Admitting CXR with congestive changes, CTA chest negative for PE but with mild pulmonary edema and bilateral pleural effusion. Admitting BNP 280, troponin elevated, flat trended. Patient with no chest pain. Patient received a dose of IV Lasix in the ED with significant improvement in his breathing/crackles improved on auscultation. Echo with EF of 40 to 45%. Cardiology on board, managing diuresis. Lasix 60 mg po daily, lisinopril hold due elevated Creatinine. Patient will need outpatient follow-up with cardiology upon discharge.Possible outpatient cardiac MRI to eval for infiltrative process. Monitor and replete electrolytes as appropriate. f/u pcp. cardio, nephro on DC. CKD stage IIIb: Admitting creatinine of 1.4, baseline creatinine around 1.6, Today 2.1, f/u w/ BMP in a week of DC. Nephro on DC. d/w nephro Aflutter: noted over telemetry, rate controlled, pt already on eliquis for other reasons. c/w telemetry. pt w/ no chest pain or palpitations. Other chronic medical conditions: HTN, history of PE --- resume home meds as able DVT prophylaxis: On Eliquis Full code Patient being discharged to home with following instruction at the point of discharge: Follow-up with your primary care physician within a week time and likely you will need labs CBC/CMP/magnesium/phosphorus. You were diagnosed with acute systolic heart failure, cardiology evaluated you, you are being discharged on Lasix 60 mg daily. For elevation of your kidney number also known as creatinine, follow-up with nephrology doctor as an outpatient. Your lisinopril has been held until you get a repeat labs within a week time upon discharge and then get reassessed/reevaluated by your primary care physician regarding resuming it. Maintain heart healthy diet, low-sodium diet, fluid restriction of 1.8 L/day. Take your medications as prescribed. Home Health Attestation I certify that this patient is under my care and that I, or a physicians product safety technical assistant working with me, had a face to-face encounter that meets the home health [id number] encounter requirements with this patient. The encounter with the patient was in whole, or in part, for the following medical condition, which is the primary reason for home health care (list medical condition): I certify that, based on my findings, the following services are medically necessary home health services: My clinical findings support the need for the above services because: Further, I certify that my clinical findings support that this patient is homebound (i.e. absences from home require considerable and taxing effort and are for medical reasons or tenriism services or infrequently or of short duration when for other reasons) because: Certification for Home Health Services: Based on the above findings, I certify that this patient is confined to the home and needs intermittent retirement care, physical therapy and/or speech therapy or continues to need occupational therapy. The patient is under my care, and I have initiated the establishment of the plan of care. This patient will be followed by a physician who will periodically review the plan of care. Total Time Total Time Spent Total Time Spent (In Minutes): 45 Discharge Plan Discharge Items Patient Disposition: Home - Self-Care Reason For Visit: SOB Discharge Diagnosis: Acute systolic heart failure Demand ischemia Condition on Discharge: Fair Activity: Resume your previous activity Non-emergency contact: Primary Care Provider Call non-emergency contact if: you have any medication questions, your symptoms worsen and your temperature is above 101 Follow-up/Referrals: Stevie Lan MD [Primary Care Provider] - (Your physician's office is aware of your hospitalization, and will call you with a follow up appointment. If the Dr Lan's office does not call with an appointment, please make sure to call the office.) Diet: Heart Healthy and Low Sodium (2gm) Fluids: 1800ml (7 cups) Dwayne Attending Provider Instructions: Follow-up with your primary care physician within a week time and likely you will need labs CBC/CMP/magnesium/phosphorus. You were diagnosed with acute systolic heart failure, cardiology evaluated you, you are being discharged on Lasix 60 mg daily. For elevation of your kidney number also known as creatinine, follow-up with nephrology doctor as an outpatient. Your lisinopril has been held until you get a repeat labs within a week time upon discharge and then get reassessed/reevaluated by your primary care physician regarding resuming it. Maintain heart healthy diet, low-sodium diet, fluid restriction of 1.8 L/day. Take your medications as prescribed. 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 * Use the same scale. * Wear the same amount of clothing. * Write your weight down on your chart. * Call your doctor if you gain more than 2-3 pounds in 1-2 days. MEDICATIONS * Use this discharge instruction sheet for instructions. * Take your medications at the time your doctor ordered. * Do not skip a dose of your medicines. * If you miss a dose of medicine, take as soon as possible, but DO NOT DOUBLE A DOSE. * Read your medicine information when you get home. * Know all of the side effects of your medicine. * Call your doctor's office if you have any side effects. * Be sure all of your doctors know what medicine and herbs you take (including cold, flu, and herbal medicine). * Pain Medicine: If you do not get relief from your pain, please call your doctor for help. Take the following with you to your follow-up doctor appointments: * Weight Chart * Medication List * List of questions Do not drink excessive alcohol, beer or wine. Pending Studies at Discharge: No Stand-Alone Forms: My [facility], Smoking Cessation Medications and DC Order Prescriptions: New aspirin 81 mg Tablet,Delayed Release (Dr/Ec) 81 mg PO DAILY Qty: 30 0RF furosemide 40 mg tablet 60 mg PO DAILY Qty: 45 0RF Continued carvedilol 3.125 mg tablet 3.125 mg PO AMPM Rx Instructions: take with morning and evening meals Eliquis 2.5 mg tablet 2.5 mg PO AMHS Discontinued lisinopril 5 mg tablet 5 mg PO QAM No Action multivitamin Tablet 1 tab PO QAM saw palmetto 450 mg Capsule 450 mg PO QAM Rx Instructions: give with food (meal/snack) Discharge Orders: Discharge Order (Routine); Ordered 05/21/22 Ordered By: Ortiz Huang Admission Data Admit Date/Time: 05/18/22 13:38 Attending Provider: Ortiz Huang Admit Provider: Ortiz Huang Primary Care Provider: Stevie Lan Other Providers: Ortiz Huang ; Arik Quezada ; Maribell Fox
--- NOTE | 2022-05-21 21:33 | Consultation Report ---
NEPHROLOGY CONSULTATION NOTE DATE OF SERVICE: 05/21/2022. REASON FOR CONSULTATION: Acute renal failure. HISTORY OF PRESENT ILLNESS: The patient is an 86-year-old male who was admitted on 05/18/2022, which would be 3 days ago because of shortness of breath and lower extremity edema. At that time, he had a creatinine of 1.4. On admission, he had a CT angiogram to rule out PE, which was negative, but that revealed cardiomegaly with mild pulmonary edema as well as bilateral pleural effusion. He has been seen by cardiology and for a few days, he did get IV Lasix and with that, his shortness of breath and lower extremity edema has improved significantly. His creatinine started to go up right from the admission and went from 1.4 on admission to 1.8, then 2.20 yesterday, but today is slightly less at 2.10. He is hemodynamically stable, otherwise and he is on room air and is eager to go home. IV Lasix has been stopped and has been changed over to p.o. Lasix as per cardiology note. Lisinopril has also been held because of rising creatinine. He did have echocardiogram which did show ejection fraction has dropped to about 40% and this is a significant change from the previous echocardiogram done in 2019. PAST MEDICAL AND SURGICAL HISTORY: Includes congestive heart failure with preserved ejection fraction previously, history of pulmonary embolism, hypertension. SOCIAL HISTORY: No smoking, no alcohol. He is and lives with his . His daughter is a nurse who was quite involved with his healthcare. ALLERGIES: None. MEDICATIONS: Home medication includes Eliquis, carvedilol 3.125 twice daily, lisinopril 5 daily, multivitamin, saw palmetto daily. REVIEW OF SYSTEMS: Twelve systems reviewed and otherwise negative at this point. At the time of admission, he had shortness of breath, some weakness and lower extremity edema. FAMILY HISTORY: Negative for renal disease or dialysis. PHYSICAL EXAMINATION: GENERAL: Elderly white male who is awake, alert, oriented x3. He is not in any respiratory distress. He looks quite fit and strong at this point. VITAL SIGNS: Blood pressure is 117/76, pulse rate 83, temperature 36.4, 95% on room air. HEENT: Mucous membrane is moist. NECK: Supple. No jugular venous distention. CHEST: Bilateral occasional crackles and somewhat diminished breath sounds. CARDIOVASCULAR: S1 and S2, regular. Systolic ejection murmur heard. ABDOMEN: Soft, nontender. EXTREMITIES: Show no edema at all at this time. LABORATORY TESTS: At the time of admission, he had a creatinine of 1.4, which then went up to 1.8 and 2.2 and today is 2.1. Electrolytes are all within normal range. Hemoglobin is 15, WBC count is 8.7, platelet count is 293. He did have CT chest angio at the time of admission, which showed no PE, but did show cardiomegaly with pulmonary edema and bilateral pleural effusion. Chest x- ray done 05/19/[address] shows [address] finding a CT chest. Urine test done at the time of admission showed fairly bland urine without proteinuria or significant hematuria. ASSESSMENT AND PLAN: An 86-year-old male with mild chronic kidney disease at baseline, but presented pretty much with his baseline creatinine of around 1.4 with congestive heart failure with pulmonary edema, bilateral pleural effusion and lower extremity edema and shortness of breath. The patient developed acute renal failure while in the hospital, for which I have been consulted. 1. Acute renal failure: I think this is predominantly related with contrast that he received at the time of admission on 05/18/2022. Given congestive heart failure and advanced age, concomitant use of Lasix and lisinopril, patient is at extremely high risk for contrast-induced nephropathy. The pattern of rise of creatinine and the peaking at around 48 hours is quite consistent with contrast nephropathy. Daughter, who is a nurse, is very concerned about Lasix use and I did try to explain that this is predominantly related with contrast rather than Lasix and he should be on some dose of Lasix going forward to keep him euvolemic. She agreed with the explanation. At this point, he is stable for discharge from renal standpoint. If the patient and the family wishes to be followed by nephrology, it can be set up. I agree with cardiology about restarting oral Lasix from tomorrow. I would wait until the creatinine gets back to his baseline before we restart the lisinopril. This can be started as an outpatient. No further investigation workup is needed. Thank you very much for the consult. Job ID: [id number] [facility]
== END 2022-05-21 16:55 | disposition home or self-care (01) | DRG 280 ==
LOC: ED 10:27 → 2N 13:38 → 2W 05-21 01:02